=== PATIENT | male | born 1980 | race African-American/Black ===

== ENCOUNTER 2023-04-12 22:02 | Emergency (ER) | payer OTHER, SELFPAY ==
[2023-04-12 22:07] VITALS: BP 171/90
[2023-04-12 22:36] LABS: % Basophils 0.4 % (0-2); % Eosinophils 1.4 % (0-6); % Immature Granulocytes 0.3 % (0-0.5); % Lymphocytes 45.4 % (20.5-51.1); % Monocytes 5.4 % (1.7-9.3); % Neutrophils 47.1 % (42.2-75.2); Absolute Eosinophils 0.1 10^3/uL (0-0.7); Absolute Lymphocytes 3.2 10^3/uL (1.2-3.4); Absolute Monocytes 0.4 10^3/uL (0.1-0.6); Absolute Neutrophils 3.3 10^3/uL (1.4-6.5); Hemoglobin 15.2 g/dL (13.0-18.0); Mean Corp Hgb Conc. 37.1 g/dL (33.0-37.0); Mean Corpuscular Hgb 30.3 pg (27.0-31.0); Mean Corpuscular Volume 81.8 fL (80.0-94.0); Mean Platelet Volume 11.6 fL (7.4-10.4); Nucleated Red Blood Cells % 0 % (-); Platelet Count 206 10^3/uL (130-400); Red Blood Cell Count 5.01 10^6/uL (4.70-6.10); Red Cell Dist. Width 12.1 % (11.5-14.5)
[2023-04-12 22:56] LABS: ALT (SGPT) 22 U/L (0-50); AST (SGOT) 34 U/L (17-59); Albumin 4.3 g/dl (3.5-5.0); Alkaline Phosphatase 61 U/L (38-126); Blood Urea Nitrogen 10 mg/dl (9-20); Calcium 9.6 mg/dl (8.4-10.2); Carbon Dioxide 30 mmol/L (22-30); Chloride 98 mmol/L (98-107); Glucose 226 mg/dl (70-99); Potassium 4.1 mmol/L (3.5-5.1); Sodium 136 mmol/L (135-145); Total Bilirubin 1.5 mg/dl (0.2-1.3); Total Protein 7.4 g/dl (6.3-8.2); eGFR > 60.00
[2023-04-12 23:07] LABS: Troponin I < 0.012 ng/ml
--- NOTE | 2023-04-13 00:09 | ED.GENMED ---
History of Present Illness
<PATRICIA Dupree - Last Filed: 04/13/23 00:23>
General
Chief Complaint: Extremity Pain (non-traumatic)
Source: patient
Exam Limitations: none
Time Seen by Provider: 04/12/23 23:55
Nursing documentation reviewed up to this point in time: agreed with
Travel History
Have you had any contact with someone who has COVID-19?: No
Do you have any symptoms of coronavirus? Fever > 100 degrees, chills, cough, shortness of breath, sore throat, loss of taste or smell, muscle aches, or headache?: No
History of Present Illness
History of Present Illness:
This is a 42 year old male, with no significant PMH, who presents to the ED c/o left arm swelling x couple hours. Pt states he was laying in his bed when he noticed his arm looked swollen. He thinks his right forearm is also swollen, but not as much
as the left side. He denies any pain but states it feels like pressure. He states that he lifts weights and most recently worked out yesterday. He denies any changes to his workout routine. Pt states he asked his neighbor, who is an [employer], to examine
his arms tonight and she recommended he have them evaluated. He denies any CP, SOB, diaphoresis, nausea, vomiting, lightheadedness, dizziness, abdominal pain, or recent travel.
Past History
<PATRICIA Dupree - Last Filed: 04/13/23 00:23>
Past History
ED Past Medical History: None
ED Past Surgical History: Orthopedic (right ACL tear)
Social History
Tobacco: Non-smoker
Alcohol: Occasional
Drug: None
Personal:
Living: with family
Family History
Family History: Diabetes (brother); Negative CAD
Review of Systems
<PATRICIA Dupree - Last Filed: 04/13/23 00:23>
Review of Systems
Allergies reviewed?: Yes
All Other Systems: ROS reviewed and negative except as documented in HPI and ROS
Constitutional: Reports no symptoms
EENT: Reports no symptoms
Respiratory: Reports no symptoms; Denies trouble breathing
Cardiac: Reports no symptoms; Denies chest pain
ABD/GI: Reports no symptoms; Denies abdominal pain, nausea or vomiting
: Reports no symptoms
Musculoskeletal: Reports joint swelling (left forearm) and muscle pain (b/l forearms)
Skin: Reports no symptoms
Neurological: Reports no symptoms
Psychiatric: Reports no symptoms
Phy Exam
<PATRICIA Dupree - Last Filed: 04/13/23 00:23>
General Physical Exam
General Presentation: well appearing and no apparent distress
General age: appears stated age
General Skin: warm and dry
General Habitus: normal
General Mental: alert
General Hydration: appears well hydrated
ENT Exam
ENT Exam: normocephalic and swallowing well
Cardiovascular Exam
Cardiovascular Exam: regular rate/rhythm, no edema, no murmur and normal peripheral pulses
Pulmonary Exam
Pulmonary Exam: lungs clear and no respiratory distress
Gastrointestinal Exam
Gastrointestinal Exam: normal bowel sounds, non tender, soft and non distended
Neurological Exam
Neurological Exam: alert and oriented x3
Musculoskeletal Exam
Musculoskeletal Exam: full ROM, no edema, neuro vasc intact and other (no edema, warmth, or erythema noted along forearms. good perfusion and pulses. No edema or swelling appreciated.)
Skin Exam
Skin Exam: normal color and warm/dry
Psychiatric Exam
Psychiatric Exam: normal mood/affect
Course
<PATRICIA Dupree - Last Filed: 04/13/23 00:23>
Orders/Labs/Results
Orders:
Orders
04/12/23 22:10
Electrocardiogram (*1) Urgent
Reason for Study: Chest Pain
EKG- Treatment ONCE
04/12/23 22:22
Complete Blood Count/With Diff Urgent
Comprehensive Metabolic Panel Urgent
Glycohemoglobin (HgbA1c) Urgent
Troponin I Urgent
04/13/23 00:19
Add On- LAB Urgent
Tests Added?: HgbA1c
Vital Signs- Treatment ONCE
Frequency: Once
Abnormal Lab Results
04/12/23
22:22
MCHC 37.1 H g/dL
(33.0-37.0)
MPV 11.6 H fL
(7.4-10.4)
Glucose 226 H mg/dl
(70-99)
Total Bilirubin 1.5 H mg/dl
(0.2-1.3)
04/12/23 22:22
04/12/23 22:22
Vital Signs
Initial and Last Documented VS:
Initial Vital Signs
Temp Pulse Resp BP Pulse Ox
97.9 F 60 18 171/90 100
04/12/23 22:07 04/12/23 22:07 04/12/23 22:07 04/12/23 22:07 04/12/23 22:07
Last Documented Vital Signs
Temp Pulse Resp BP Pulse Ox
97.9 F 60 18 133/89 100
04/12/23 22:07 04/12/23 22:07 04/12/23 22:07 04/13/23 00:29 04/12/23 22:07
<Michelle Suazo, DO - Last Filed: 04/13/23 00:43>
Orders/Labs/Results
Orders:
Orders
04/12/23 22:10
Electrocardiogram (*1) Urgent
Reason for Study: Chest Pain
EKG- Treatment ONCE
04/12/23 22:22
Complete Blood Count/With Diff Urgent
Comprehensive Metabolic Panel Urgent
Glycohemoglobin (HgbA1c) Urgent
Troponin I Urgent
04/13/23 00:19
Add On- LAB Urgent
Tests Added?: HgbA1c
Vital Signs- Treatment ONCE
Frequency: Once
Abnormal Lab Results
04/12/23
22:22
MCHC 37.1 H g/dL
(33.0-37.0)
MPV 11.6 H fL
(7.4-10.4)
Glucose 226 H mg/dl
(70-99)
Total Bilirubin 1.5 H mg/dl
(0.2-1.3)
04/12/23 22:22
04/12/23 22:22
Vital Signs
Initial and Last Documented VS:
Initial Vital Signs
Temp Pulse Resp BP Pulse Ox
97.9 F 60 18 171/90 100
04/12/23 22:07 04/12/23 22:07 04/12/23 22:07 04/12/23 22:07 04/12/23 22:07
Last Documented Vital Signs
Temp Pulse Resp BP Pulse Ox
97.9 F 60 18 133/89 100
04/12/23 22:07 04/12/23 22:07 04/12/23 22:07 04/13/23 00:29 04/12/23 22:07
<Michelle Suazo, DO - Last Filed: 04/13/23 00:43>
*Pulse Oximetry
Patient hypoxic: no
*EKG
Interpreted by ED Provider?: Yes
Interpretation: normal
Comparison EKG: no comparison EKG present
Rate: normal
Rhythm: sinus
[place]: normal axis
Interval: normal interval
QRS Pattern: normal QRS
Ischemia: no ischemia
*Critical Care Note
Total Time (30-74mins, 75-104mins- exclusive of procedures): Not Applicable
ED Attending Note
<PATRICIA Dupree - Last Filed: 04/13/23 00:23>
-
Portions of this chart may have been created with voice recognition software.� Occasional wrong word or��sound alike� substitutions may have occurred due to the inherent limitations of voice recognition software.
<Michelle Suazo DO - Last Filed: 04/13/23 00:43>
ED Attending Note
Patient seen and examined by attending physician: Yes
I performed the substantive portion of visit, reviewed & personally made and approve the management plan that is documented in note by myself or UVALDO.: Yes
I performed a history and physical exam of patient and discussed management with resident, I reviewed resident's note and agree with documented findings and plan of care.: Yes
ED Attending Note:
42-year-old gentleman who has history of hyperlipidemia, impaired fasting glucose, presents with bilateral anterior proximal forearm pain and swelling which he noticed tonight.
He admits to exercising, lifting weights on a daily basis and was doing upper body weight lifting yesterday but denies insightful injury, no sensation of popping or pulling during exercise regimen.
Feeling well throughout the day today but tonight noticed some discomfort of his forearms and noticed some swelling of anterolateral proximal forearms left greater than right.
No other associated symptoms. No chest pain or shortness of breath, no dizziness nor lightheadedness.
Limited prior records reviewed. PCPs Dr. Palencia with last office visit August 2022. Fasting labs ordered at that time but were never completed.
Records do reveal patient has history of impaired fasting glucose, hyperlipidemia and he states his brother was recently diagnosed with diabetes within the past 6 months.
GENERAL: Alert , in no apparent distress
EYE: anicteric
NECK: Supple, nontender, no meningismus, no significant adenopathy.
ENT: oral mucosa is moist. No rhinorrhea.
CARDIAC: Regular rate and rhythm. no murmur.
LUNGS: Clear breath sounds bilaterally, no acute respiratory distress, no wheezes/rales/rhonchi
ABDOMEN: Soft, nondistended, without focal tenderness
NEUROLOGICAL: Alert and oriented x3, no focal neuro deficits. Gait is reilly and steady.
SKIN: Warm and dry, normal color, skin intact. No rash.
MUSCULOSKELETAL: No C/C/E. peripheral pulses are full and equal b/l. There is very minimal fullness anterolateral proximal forearm musculature bilaterally left greater than right with mild local tenderness to palpation. No palpable defect. There
is no edema, no bony tenderness. Full range of motion of the elbow, wrist without difficulty nor pain. Hand grasp are full and equal bilaterally. Sensation and strength intact.
PSYCH: Normal and appropriate interaction.
History and exam most consistent with forearm muscle strain. There is no evidence of tendon rupture, no significant soft tissue swelling. Neurovascularly intact.
Labs are remarkable for moderately elevated glucose of 226 without acidosis.
Troponin is negative.
EKG is unremarkable, normal sinus rhythm at 61, no acute ST-T wave abnormalities.
History and exam most consistent with forearm muscle strain and not ACS.
I do suspect patient has diabetes at least early diabetes and hemoglobin A1c has been added to blood in the lab.
We discussed dietary measures including initiation of a low glycemic diet.
Recommend he avoid upper body lifting at least over the next several days.
May take Tylenol versus ibuprofen as needed for discomfort.
Prompt follow-up with PCP for recheck. As Dr. Palencia is retiring in the near future, patient requests referral to a new PCP. A message has been sent to PCP referral/request.
Discharge Plan
Departure
Patient Disposition: Home (Routine Discharge)
Date of Disposition: 04/13/23
Time of Disposition: 00:31
Patient with high blood pressure during this ER visit?: Yes
Condition: Good
Discharge Problem:
Muscle strain of forearm, Elevated blood sugar level
Instructions: Muscle Strain (DC), BLOOD PRESSURE
Referrals:
Delilah Palencia MD [Family Provider] - Call in 1-3 days for appt
Activity Restrictions/Additional Instructions:
To help with elevated blood sugar, I recommend he start a low glycemic diet by avoiding breads, pasta, rice, potatoes.
You have strained the muscles in your forearms from lifting. Recommend you rest from upper body/forearm lifting activities at least over the next 3 to 5 days, then resume at [facility] [employer] [facility] weights as tolerated.
Follow-up with your primary care physician for recheck.
Interventions
Interventions:
ED- Fall Risk Assessment Last Done: 04/12/23 23:12
ED-Skin Assessment Last Done: 04/12/23 23:12
ED-Peripheral Vascular Assessment Last Done: 04/12/23 23:12
ED-Musculoskeletal Assessment Last Done: 04/12/23 23:12
[2023-04-13 00:29] VITALS: BP 133/89
[2023-04-13 11:41] LABS: Glycohemoglobin (HgbA1c) 9.6 % (4.0-5.6)
== END 2023-04-13 00:45 | disposition home or self-care (01) ==
LOC: EMR 22:02
PROVIDERS: Student in an Organized Health Care Education/Training Program; EMERGENCY PHYSICIAN Emergency Medicine; FAMILY PHYSICIAN Internal Medicine
DX: S56.919A Strain of unspecified muscles, fascia and tendons at forearm level, unspecified arm, initial encounter (principal); R73.9 Hyperglycemia, unspecified; X58.XXXA Exposure to other specified factors, initial encounter; Z83.3 Family history of diabetes mellitus
CPT/HCPCS: 99283; 80053; 83036; 84484; 85025; 93005

== ENCOUNTER 2024-12-11 17:29 | Emergency (ER) | payer OTHER, SELFPAY ==
[2024-12-11 17:34] VITALS: BP 155/85
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
[2024-12-11] MEDS: TYLENOL 1000 MG PO (18:30)
[2024-12-11 21:27] VITALS: BP 143/78
== END 2024-12-11 21:28 | disposition home or self-care (01) ==
LOC: EMR 17:29
PROVIDERS: EMERGENCY PHYSICIAN Emergency Medicine
DX: S16.1XXA Strain of muscle, fascia and tendon at neck level, initial encounter (principal); R51.9 Headache, unspecified; V43.52XA Car driver injured in collision with other type car in traffic accident, initial encounter; Y92.410 Unspecified street and highway as the place of occurrence of the external cause; E11.9 Type 2 diabetes mellitus without complications; E78.00 Pure hypercholesterolemia, unspecified; Z83.3 Family history of diabetes mellitus
CPT/HCPCS: 99284; 70450; 71250; 72110; 72125; 73030; 73130; 73590; 73610; 73630